=== PATIENT | female | born 1965 | race Caucasian/White ===

== ENCOUNTER → 2019-10-10 | Outpatient (CLI) | payer OTHER, MEDICAID ==
--- NOTE | 2019-10-10 10:26 | NUR ---
Called r/t pt's critical k+2.5. Pt scheduled for surgery on 10/14. Dr. Adam's office notified of critical level. Advised pt is on lasix 40mg BID and kcl 10mEq daily. Results also faxed to office. Per Myrtle, she will fax results to pt's primary Wyatt Hernandez so that they can manage pt's hypokalemia.
== END ==
LOC: M.LAB 09:21
PROVIDERS: ATTEND Orthopaedic Surgery
DX: Z01.812 Encounter for preprocedural laboratory examination (principal)

== ENCOUNTER → 2019-10-15 | Outpatient (CLI) | payer OTHER, MEDICAID | LOC: M.LAB 04:35 | PROVIDERS: ATTEND Anesthesiology | DX: E87.6 Hypokalemia (principal) ==

== ENCOUNTER → 2020-07-30 | Outpatient (CLI) | payer OTHER, MEDICAID | LOC: M.LAB 05:32 | PROVIDERS: ATTEND Anesthesiology | DX: Z01.812 Encounter for preprocedural laboratory examination (principal); Z20.822 Contact with and (suspected) exposure to COVID-19 ==